=== PATIENT | female | born 1960 | race Caucasian/White ===

== ENCOUNTER 2023-09-19 16:20 | Emergency (ER) | payer OTHER ==
[~2023-09-19] VITALS: Ht 162.6 cm; Wt 70.5 kg
[2023-09-19] MEDS: SODIUM CHLORIDE 0.9% 1,000 ML IV ONE (17:24)
[2023-09-19] MEDS: ONDANSETRON HCL 4 MG/2 ML VIAL IVP ONE (17:24)
[2023-09-19] MEDS: MORPHINE SULFATE 4 MG/ML SYRINGE IVP ONE (17:24)
[2023-09-19] MEDS: IOHEXOL 9 MG/ML 500 ML BOTTLE PO ONE (17:25)
[2023-09-19 17:30] LABS: BASOPHILS % (AUTO) 0.6 % (0.0-2.0); EOSINOPHILS % (AUTO) 0.1 % (1.0-6.0); HEMOGLOBIN 13.9 g/dL (12.0-16.0); LYMPHOCYTES # (AUTO) 1.1 K/uL (1.0-4.8); LYMPHOCYTES % (AUTO) 6.9 % (22.0-44.0); MEAN CORPUSCULAR HEMOGLOBIN 29.6 pg (26.0-34.0); MEAN CORPUSCULAR HGB CONC 33.8 G/dL (31.0-37.0); MEAN CORPUSCULAR VOLUME 88 fL (80-100); MONOCYTES # (AUTO) 0.9 K/uL (0.1-1.0); MONOCYTES % (AUTO) 5.8 % (2.0-9.0); NEUTROPHILS # (AUTO) 13.3 K/uL (1.8-7.7); PLATELET COUNT (AUTO) 310 K/uL (150-450); RED BLOOD CELL COUNT(AUTO) 4.67 MIL/uL (4.00-5.20); RED CELL DISTRIBUTION WIDTH 14.3 % (11.5-14.5); WHITE BLOOD COUNT (AUTO) 15.4 K/uL (4.5-11.0)
[2023-09-19 17:33] LABS: NEUTROPHILS % (AUTO) 86.6 % (40.0-70.0)
[2023-09-19 17:36] LABS: ANION GAP 11 mmol/L (8-16); CALCIUM, TOTAL 9.4 mg/dL (8.8-10.5); CARBON DIOXIDE 25 mmol/L (22-29); CHLORIDE 103 mmol/L (98-107); GLOMERULAR FILTR. RATE CALC 35 mL/min (>60); GLUCOSE,RANDOM 136 mg/dL (70-110); SODIUM SERUM 139 mmol/L (136-145); UREA NITROGEN, BLOOD 15 mg/dL (7-18)
[2023-09-19 17:42] LABS: ALANINE AMINOTRANSFERASE 18 U/L (12-78); ALBUMIN 3.6 g/dL (3.4-5.0); ALKALINE PHOSPHATASE 163 U/L (46-116); ASPARTATE AMINOTRANSFERASE 21 U/L (15-37); BILIRUBIN,TOTAL 0.7 mg/dL (0.1-1.0); LIPASE 16 U/L (16-77); TOTAL PROTEIN, SERUM 7.2 g/dL (6.4-8.2)
[2023-09-19 17:43] LABS: TROPONIN I-HIGH SENSITIVITY 5 ng/L (<51)
[2023-09-19 17:44] LABS: LACTIC ACID 0.8 mmol/L (0.4-2.0)
[2023-09-19] MEDS ORDERED: IOHEXOL 350 MG/ML 100 ML VIAL ONE (18:04)
[2023-09-19] MEDS ORDERED: SODIUM CHLORIDE 0.9% 100 ML ONE (18:04)
[2023-09-19] MEDS: MAGNESIUM CITRATE [LEMON] 300 ML ORAL SOLUTION PO ONE (20:10)
[2023-09-19] MEDS: ACETAMINOPHEN 500 MG TABLET PO ONE (20:11)
[2023-09-19] MEDS: TAMSULOSIN HCL 0.4 MG CAPSULE PO ONE (20:12)
[2023-09-19] MEDS: BISACODYL 10 MG RECTAL RECTAL SUPPOSITORY PR ONE (20:12)
[2023-09-19] MEDS: KETOROLAC TROMETHAMINE 30 MG/ML VIAL IVP ONE (20:18)
[2023-09-19 20:21] LABS: APPEARANCE,URINE CLEAR (CLEAR); BILIRUBIN,URINE NEGATIVE (NEGATIVE); COLOR,URINE LIGHT YELLOW (YELLOW); GLUCOSE, URINE (UA) NEGATIVE (NEGATIVE); KETONES,URINE 40-60 mg/dL (NEGATIVE); LEUKOCYTE ESTERASE ,URINE NEGATIVE (NEGATIVE); NITRATE,URINE NEGATIVE (NEGATIVE); OCCULT BLOOD,URINE NEGATIVE (NEGATIVE); PROTEIN,URINE TRACE mg/dL (NEGATIVE); UROBILINOGEN,URINE <=1.0 mg/dL (<=1.0)
[2023-09-19 20:28] LABS: RBC,URINE None Seen /HPF (0-2)
[2023-09-19 20:29] LABS: BACTERIA,URINE None Seen /HPF (None Seen); SQUAMOUS EPITHELIAL CELL,UR Rare /LPF (None Seen); WBC,URINE None Seen /HPF (0-5)
[2023-09-19] MEDS ORDERED: ONDA-104 PO (20:42)
[2023-09-19] MEDS ORDERED: TAMS0.4C94 PO (20:42)
[2023-09-19] MEDS ORDERED: POLY119P3 PO (20:42)
[2023-09-19] MEDS ORDERED: IBUP-1554 PO (20:42)
[2023-09-19 21:00] VITALS: BP 127/67; PULSE 74; RESP 16; TEMP 97.3
[2023-09-19] MEDS ORDERED: ACET-2080 PO (21:01)
== END 2023-09-19 21:28 | disposition home or self-care (01) ==
LOC: EMS 16:21 → EDSEX 16:21 → EMS 21:28
DX: N13.9 Obstructive and reflux uropathy, unspecified (principal); N20.9 Urinary calculus, unspecified; K57.90 Diverticulosis of intestine, part unspecified, without perforation or abscess without bleeding; I10 Essential (primary) hypertension; Z88.0 Allergy status to penicillin
CPT/HCPCS: 99285; 74177; 96374; 96375; 96361; 80053; 81001; 83605; 83690; 84484; 85025; 36415; J1885; J2270; J2405; Q9967; J7030; J7050